=== PATIENT | male | born 1960 | race Caucasian/White ===

== ENCOUNTER 2020-03-18 22:15 | Inpatient (IN) | payer MEDICAID ==
[~2020-03-18] VITALS: Ht 172.7 cm; Wt 110.5 kg
[~2020-03-18 22:15] MED LIST: ARIP10TA8 PO; BENA20TA11 PO; CITA-144 PO; CLON-353 PO; HYDR25TA PO; SIMV-46 PO
[2020-03-18 23:38] LABS: BASOPHILS % (AUTO) 0.8 % (0.0-2.0); HEMATOCRIT 39.9 % (41-53); HEMOGLOBIN 13.1 g/dL (13.5-17.5); LYMPHOCYTES # (AUTO) 1.8 K/uL (1.0-4.8); LYMPHOCYTES % (AUTO) 22.7 % (22.0-44.0); MEAN CORPUSCULAR HEMOGLOBIN 28.2 pg (26.0-34.0); MEAN CORPUSCULAR HGB CONC 32.8 G/dL (31.0-37.0); MEAN CORPUSCULAR VOLUME 86 fL (80-100); MONOCYTES # (AUTO) 0.5 K/uL (0.1-1.0); MONOCYTES % (AUTO) 6.5 % (2.0-9.0); NEUTROPHILS # (AUTO) 5.4 K/uL (1.8-7.7); PLATELET COUNT (AUTO) 264 K/uL (150-450); RED BLOOD CELL COUNT(AUTO) 4.64 MIL/uL (4.50-5.90); RED CELL DISTRIBUTION WIDTH 14.1 % (11.5-14.5)
[2020-03-18 23:53] LABS: ANION GAP 6 mmol/L (8-16); CALCIUM, TOTAL 8.5 mg/dL (8.8-10.5); CARBON DIOXIDE 30 mmol/L (22-29); CHLORIDE 109 mmol/L (98-107); CREATININE 1.15 mg/dL (0.60-1.30); GLOMERULAR FILTR. RATE CALC > 60 mL/min (>60); GLUCOSE,RANDOM 96 mg/dL (70-110); POTASSIUM 4.3 mmol/L (3.5-5.1); SODIUM SERUM 145 mmol/L (136-145); UREA NITROGEN, BLOOD 27 mg/dL (7-18)
[2020-03-19 00:01] LABS: ALANINE AMINOTRANSFERASE 23 U/L (12-78); ALBUMIN 3.1 g/dL (3.4-5.0); ALKALINE PHOSPHATASE 54 U/L (46-116); ASPARTATE AMINOTRANSFERASE 14 U/L (15-37); BILIRUBIN,TOTAL 0.2 mg/dL (0.1-1.0); TOTAL PROTEIN, SERUM 6.2 g/dL (6.4-8.2)
[2020-03-19] MEDS ORDERED: IOVERSOL 350 MG/ML 100 ML VIAL ONE (01:30)
[2020-03-19] MEDS ORDERED: SODIUM CHLORIDE 0.9% 100 ML ONE (01:31)
[2020-03-19] MEDS ORDERED: HALOPERIDOL 5 MG TABLET PO PRN (02:00)
[2020-03-19] MEDS ORDERED: LORazepam 2 MG TABLET PO PRN (02:00)
[2020-03-19] MEDS ORDERED: ZOLPIDEM TARTRATE 10 MG TABLET PO PRN (02:00)
[2020-03-19 02:09] LABS: APPEARANCE,URINE CLEAR (CLEAR); BILIRUBIN,URINE NEGATIVE (NEGATIVE); GLUCOSE, URINE (UA) NEGATIVE (NEGATIVE); KETONES,URINE NEGATIVE (NEGATIVE); LEUKOCYTE ESTERASE ,URINE NEGATIVE (NEGATIVE); NITRATE,URINE NEGATIVE (NEGATIVE); OCCULT BLOOD,URINE NEGATIVE (NEGATIVE); PROTEIN,URINE NEGATIVE (NEGATIVE); UROBILINOGEN,URINE 0.2 mg/dL (<=1.0)
[2020-03-19 02:14] LABS: AMPHET/METH SCREEN,URINE NEGATIVE (NEGATIVE); BARBITURATE SCREEN, URINE NEGATIVE (NEGATIVE); BENZODIAZEPINES SCREEN,URINE NEGATIVE (NEGATIVE); CANNABINOID SCREEN,URINE NEGATIVE (NEGATIVE); COCAINE SCREEN,URINE NEGATIVE (NEGATIVE); METHADONE SCREEN, URINE NEGATIVE (NEGATIVE); OPIATE SCREEN,URINE NEGATIVE (NEGATIVE)
[2020-03-19] MEDS ORDERED: MAG HYDROX/AL HYDROX/SIMETH ES 30 ML SUSPENSION UDCUP PO PRN (09:00)
[2020-03-19] MEDS ORDERED: MAGNESIUM HYDROXIDE SUSPENSION 30 ML UDCUP PO PRN (09:00)
[2020-03-19] MEDS ORDERED: ACETAMINOPHEN 325 MG TABLET PO PRN (09:00)
[2020-03-19] MEDS ORDERED: CloNIDine HCL 0.1 MG TABLET PO PRN (09:00)
[2020-03-19] MEDS ORDERED: PETROLATUM,WHITE 28 GM JELLY TP PRN (09:00)
[2020-03-19] MEDS ORDERED: ONDANSETRON HCL 4 MG TABLET PO PRN (09:00)
[2020-03-19] MEDS ORDERED: IBUPROFEN 400 MG TABLET PO PRN (09:00)
[2020-03-19] MEDS ORDERED: ALBUTEROL SULFATE HFA 90 MCG/PUFF 8 GM INHALER IH PRN (09:00)
[2020-03-19] MEDS ORDERED: NICOTINE 14 MG/24 HOUR PATCH TD PRN (09:00)
[2020-03-19] MEDS ORDERED: GuaiFENesin/D-METHORPHAN [SUGAR-FREE] 200-20MG/10 ML SYRUP UDCUP PO PRN (09:00)
[2020-03-19] MEDS ORDERED: DOCUSATE SODIUM 100 MG CAPSULE PO PRN (09:00)
[2020-03-19 13:00] VITALS: BP 154/77
[2020-03-19] MEDS ORDERED: PNEUMOCOCCAL VACCINE POLYVALENT 0.5 ML VIAL [PPSV23] IM ONE (14:00)
[2020-03-19] MEDS: HYDROCHLOROTHIAZIDE 25 MG TABLET PO SCH (14:26)
[2020-03-19 17:00] VITALS: BP 145/74
[2020-03-20 07:11] LABS: CHOL/HDL RATIO 4.7 (4.2-7.3)
[2020-03-20] MEDS: HYDROCHLOROTHIAZIDE 25 MG TABLET PO SCH (09:09)
[2020-03-20 09:37] VITALS: BP 151/98
[2020-03-20] MEDS: CITALOPRAM HYDROBROMIDE 10 MG TABLET PO SCH (13:19)
[2020-03-20] MEDS: ARIPiprazole 10 MG TABLET PO SCH (16:45)
[2020-03-20] MEDS: CloNIDine HCL 0.1 MG TABLET PO SCH (16:45)
[2020-03-20 17:27] VITALS: BP 145/81
[2020-03-20] MEDS: SIMVASTATIN 40 MG TABLET PO SCH (20:33)
[2020-03-21 08:30] VITALS: BP 154/66
[2020-03-21] MEDS ORDERED: BENAZEPRIL HCL 20 MG TABLET PO SCH (09:00)
[2020-03-21] MEDS: CloNIDine HCL 0.1 MG TABLET PO SCH ×2 (09:01→16:47)
[2020-03-21] MEDS: ARIPiprazole 10 MG TABLET PO SCH ×2 (09:01→16:47)
[2020-03-21] MEDS: HYDROCHLOROTHIAZIDE 25 MG TABLET PO SCH (09:01)
[2020-03-21] MEDS: CITALOPRAM HYDROBROMIDE 10 MG TABLET PO SCH (09:01)
[2020-03-21 19:35] VITALS: BP 117/62
[2020-03-21] MEDS: SIMVASTATIN 40 MG TABLET PO SCH (20:10)
[2020-03-22 05:08] VITALS: BP 125/62
[2020-03-22 08:30] VITALS: BP 137/89
[2020-03-22] MEDS: HYDROCHLOROTHIAZIDE 25 MG TABLET PO SCH (09:37)
[2020-03-22] MEDS: CloNIDine HCL 0.1 MG TABLET PO SCH ×2 (09:37→17:16)
[2020-03-22] MEDS: CITALOPRAM HYDROBROMIDE 10 MG TABLET PO SCH (09:37)
[2020-03-22] MEDS: ARIPiprazole 10 MG TABLET PO SCH ×2 (09:37→17:16)
[2020-03-22] MEDS: BENAZEPRIL HCL 10 MG TABLET PO SCH (09:38)
[2020-03-22 16:00] VITALS: BP 126/71
[2020-03-22] MEDS: SIMVASTATIN 40 MG TABLET PO SCH (20:35)
[2020-03-23 08:30] VITALS: BP 156/91
[2020-03-23] MEDS: CITALOPRAM HYDROBROMIDE 10 MG TABLET PO SCH (09:35)
[2020-03-23] MEDS: BENAZEPRIL HCL 10 MG TABLET PO SCH (09:35)
[2020-03-23] MEDS: CloNIDine HCL 0.1 MG TABLET PO SCH ×2 (09:36→16:57)
[2020-03-23] MEDS: HYDROCHLOROTHIAZIDE 25 MG TABLET PO SCH (09:36)
[2020-03-23] MEDS: ARIPiprazole 10 MG TABLET PO SCH ×2 (09:36→16:57)
[2020-03-23] MEDS: SIMVASTATIN 40 MG TABLET PO SCH (21:19)
[2020-03-23 21:53] VITALS: BP 102/67
[2020-03-24] MEDS: CloNIDine HCL 0.1 MG TABLET PO SCH ×2 (09:13→16:30)
[2020-03-24] MEDS: HYDROCHLOROTHIAZIDE 25 MG TABLET PO SCH (09:13)
[2020-03-24] MEDS: ARIPiprazole 10 MG TABLET PO SCH ×2 (09:13→16:30)
[2020-03-24] MEDS: CITALOPRAM HYDROBROMIDE 10 MG TABLET PO SCH (09:14)
[2020-03-24] MEDS: BENAZEPRIL HCL 10 MG TABLET PO SCH (09:14)
[2020-03-24 12:36] VITALS: BP 110/55
[2020-03-24 19:19] VITALS: BP 117/68
[2020-03-24] MEDS: SIMVASTATIN 40 MG TABLET PO SCH (21:05)
[2020-03-24] MEDS: LOPERAMIDE HCL 2 MG CAPSULE PO PRN (22:12)
[2020-03-25 05:03] VITALS: BP 129/77
[2020-03-25 08:46] VITALS: BP 146/71
[2020-03-25] MEDS: ARIPiprazole 10 MG TABLET PO SCH ×2 (08:53→16:23)
[2020-03-25] MEDS: CloNIDine HCL 0.1 MG TABLET PO SCH ×2 (08:53→16:23)
[2020-03-25] MEDS: HYDROCHLOROTHIAZIDE 25 MG TABLET PO SCH (08:53)
[2020-03-25] MEDS: BENAZEPRIL HCL 10 MG TABLET PO SCH (08:54)
[2020-03-25] MEDS: CITALOPRAM HYDROBROMIDE 10 MG TABLET PO SCH (08:54)
[2020-03-25 20:08] VITALS: BP 123/70
[2020-03-25] MEDS: SIMVASTATIN 40 MG TABLET PO SCH (20:14)
[2020-03-26 05:04] VITALS: BP 133/71
[2020-03-26] MEDS: HYDROCHLOROTHIAZIDE 25 MG TABLET PO SCH (09:09)
[2020-03-26] MEDS: ARIPiprazole 10 MG TABLET PO SCH ×2 (09:09→17:11)
[2020-03-26] MEDS: BENAZEPRIL HCL 10 MG TABLET PO SCH (09:09)
[2020-03-26] MEDS: CITALOPRAM HYDROBROMIDE 10 MG TABLET PO SCH (09:09)
[2020-03-26] MEDS: CloNIDine HCL 0.1 MG TABLET PO SCH ×2 (09:09→17:11)
[2020-03-26 10:14] VITALS: BP 126/70
[2020-03-26 18:32] VITALS: BP 105/69
[2020-03-26] MEDS: SIMVASTATIN 40 MG TABLET PO SCH (20:44)
[2020-03-27] MEDS: HYDROCHLOROTHIAZIDE 25 MG TABLET PO SCH (09:25)
[2020-03-27] MEDS: CloNIDine HCL 0.1 MG TABLET PO SCH ×2 (09:25→16:04)
[2020-03-27] MEDS: ARIPiprazole 10 MG TABLET PO SCH ×2 (09:25→16:04)
[2020-03-27] MEDS: BENAZEPRIL HCL 10 MG TABLET PO SCH (09:26)
[2020-03-27] MEDS: CITALOPRAM HYDROBROMIDE 10 MG TABLET PO SCH (09:26)
[2020-03-27 13:05] VITALS: BP 145/80
[2020-03-27 18:40] VITALS: BP 152/53
[2020-03-27] MEDS: SIMVASTATIN 40 MG TABLET PO SCH (20:47)
[2020-03-27 23:43] VITALS: BP 122/70
[2020-03-28 09:06] VITALS: BP 157/86
[2020-03-28] MEDS: CITALOPRAM HYDROBROMIDE 10 MG TABLET PO SCH (09:15)
[2020-03-28] MEDS: CloNIDine HCL 0.1 MG TABLET PO SCH ×2 (09:15→17:00)
[2020-03-28] MEDS: HYDROCHLOROTHIAZIDE 25 MG TABLET PO SCH (09:15)
[2020-03-28] MEDS: ARIPiprazole 10 MG TABLET PO SCH ×2 (09:15→17:26)
[2020-03-28] MEDS: BENAZEPRIL HCL 10 MG TABLET PO SCH (09:16)
[2020-03-28 16:45] VITALS: BP 110/69
[2020-03-28 16:59] VITALS: BP 113/71
[2020-03-28] MEDS: SIMVASTATIN 40 MG TABLET PO SCH (20:26)
[2020-03-29] MEDS: BENAZEPRIL HCL 10 MG TABLET PO SCH (09:16)
[2020-03-29] MEDS: HYDROCHLOROTHIAZIDE 25 MG TABLET PO SCH (09:16)
[2020-03-29] MEDS: CITALOPRAM HYDROBROMIDE 10 MG TABLET PO SCH (09:16)
[2020-03-29] MEDS: ARIPiprazole 10 MG TABLET PO SCH ×2 (09:16→16:18)
[2020-03-29] MEDS: CloNIDine HCL 0.1 MG TABLET PO SCH ×2 (09:16→16:18)
[2020-03-29 10:39] VITALS: BP 129/80
[2020-03-29 16:32] VITALS: BP 99/61
[2020-03-29] MEDS: LOPERAMIDE HCL 2 MG CAPSULE PO PRN (16:32)
[2020-03-29] MEDS: SIMVASTATIN 40 MG TABLET PO SCH (20:36)
[2020-03-30 00:58] VITALS: BP 139/57
[2020-03-30 09:51] VITALS: BP 147/78
[2020-03-30] MEDS: HYDROCHLOROTHIAZIDE 25 MG TABLET PO SCH (09:55)
[2020-03-30] MEDS: BENAZEPRIL HCL 10 MG TABLET PO SCH (09:55)
[2020-03-30] MEDS: CITALOPRAM HYDROBROMIDE 10 MG TABLET PO SCH (09:55)
[2020-03-30] MEDS: ARIPiprazole 10 MG TABLET PO SCH ×2 (09:55→17:37)
[2020-03-30] MEDS: CloNIDine HCL 0.1 MG TABLET PO SCH ×2 (09:56→17:37)
[2020-03-30 17:21] LABS: BASOPHILS % (AUTO) 0.6 % (0.0-2.0); EOSINOPHILS % (AUTO) 1.4 % (1.0-6.0); HEMATOCRIT 40.7 % (41-53); HEMOGLOBIN 13.3 g/dL (13.5-17.5); LYMPHOCYTES # (AUTO) 1.7 K/uL (1.0-4.8); LYMPHOCYTES % (AUTO) 24.3 % (22.0-44.0); MEAN CORPUSCULAR HEMOGLOBIN 28.2 pg (26.0-34.0); MEAN CORPUSCULAR HGB CONC 32.7 G/dL (31.0-37.0); MEAN CORPUSCULAR VOLUME 86 fL (80-100); MONOCYTES # (AUTO) 0.4 K/uL (0.1-1.0); MONOCYTES % (AUTO) 6.3 % (2.0-9.0); NEUTROPHILS # (AUTO) 4.7 K/uL (1.8-7.7); NEUTROPHILS % (AUTO) 67.4 % (40.0-70.0); PLATELET COUNT (AUTO) 255 K/uL (150-450); RED BLOOD CELL COUNT(AUTO) 4.72 MIL/uL (4.50-5.90); RED CELL DISTRIBUTION WIDTH 13.8 % (11.5-14.5)
[2020-03-30 17:39] LABS: ANION GAP 5 mmol/L (8-16); CALCIUM, TOTAL 8.7 mg/dL (8.8-10.5); CARBON DIOXIDE 32 mmol/L (22-29); CHLORIDE 103 mmol/L (98-107); CREATININE 0.99 mg/dL (0.60-1.30); GLOMERULAR FILTR. RATE CALC > 60 mL/min (>60); GLUCOSE,RANDOM 101 mg/dL (70-110); POTASSIUM 4.1 mmol/L (3.5-5.1); SODIUM SERUM 140 mmol/L (136-145); UREA NITROGEN, BLOOD 31 mg/dL (7-18)
[2020-03-30 17:42] VITALS: BP 105/65
[2020-03-30] MEDS: SIMVASTATIN 40 MG TABLET PO SCH (20:03)
[2020-03-31 09:07] VITALS: BP 141/76
[2020-03-31] MEDS: CloNIDine HCL 0.1 MG TABLET PO SCH ×2 (09:51→17:34)
[2020-03-31] MEDS: HYDROCHLOROTHIAZIDE 25 MG TABLET PO SCH (09:51)
[2020-03-31] MEDS: BENAZEPRIL HCL 10 MG TABLET PO SCH (09:52)
[2020-03-31] MEDS: ARIPiprazole 10 MG TABLET PO SCH ×2 (09:52→17:34)
[2020-03-31] MEDS: CITALOPRAM HYDROBROMIDE 10 MG TABLET PO SCH (09:53)
[2020-03-31 18:55] VITALS: BP 136/69
[2020-03-31] MEDS: SIMVASTATIN 40 MG TABLET PO SCH (20:40)
[2020-04-01] MEDS: CloNIDine HCL 0.1 MG TABLET PO SCH ×2 (09:15→17:00)
[2020-04-01] MEDS: ARIPiprazole 10 MG TABLET PO SCH ×2 (09:16→17:27)
[2020-04-01] MEDS: BENAZEPRIL HCL 10 MG TABLET PO SCH (09:16)
[2020-04-01] MEDS: HYDROCHLOROTHIAZIDE 25 MG TABLET PO SCH (09:16)
[2020-04-01] MEDS: CITALOPRAM HYDROBROMIDE 10 MG TABLET PO SCH (09:16)
[2020-04-01 11:06] VITALS: BP 118/73
[2020-04-01 16:00] VITALS: BP 131/74
[2020-04-01] MEDS: SIMVASTATIN 40 MG TABLET PO SCH (20:37)
[2020-04-02 06:20] VITALS: BP 147/90
[2020-04-02 08:00] VITALS: BP 149/91
[2020-04-02] MEDS: HYDROCHLOROTHIAZIDE 25 MG TABLET PO SCH (09:24)
[2020-04-02] MEDS: CloNIDine HCL 0.1 MG TABLET PO SCH ×2 (09:24→17:00)
[2020-04-02] MEDS: ARIPiprazole 10 MG TABLET PO SCH ×2 (09:25→17:17)
[2020-04-02] MEDS: CITALOPRAM HYDROBROMIDE 10 MG TABLET PO SCH (09:25)
[2020-04-02] MEDS: BENAZEPRIL HCL 10 MG TABLET PO SCH (09:26)
[2020-04-02 15:10] VITALS: BP 131/63
[2020-04-02 16:35] LABS: GLUCOMETER DEV NAME(LOC) PVLAB.13
[2020-04-02 17:00] VITALS: BP 128/65
[2020-04-02] MEDS: SIMVASTATIN 40 MG TABLET PO SCH (20:44)
[2020-04-03] MEDS: CloNIDine HCL 0.1 MG TABLET PO SCH (08:59)
[2020-04-03] MEDS: BENAZEPRIL HCL 10 MG TABLET PO SCH (08:59)
[2020-04-03] MEDS: ARIPiprazole 10 MG TABLET PO SCH (08:59)
[2020-04-03] MEDS: HYDROCHLOROTHIAZIDE 25 MG TABLET PO SCH (09:00)
[2020-04-03] MEDS: CITALOPRAM HYDROBROMIDE 10 MG TABLET PO SCH (09:00)
[2020-04-03 09:23] VITALS: BP 156/85
[2020-04-03] MEDS ORDERED: CITA10TA99 PO (10:13)
[2020-04-03] MEDS ORDERED: BENA10TA77 PO (10:19)
== END 2020-04-03 16:15 | disposition home or self-care (01) | DRG 881 ==
LOC: EMS 22:17 → 3EX 03-19 12:35 → 3EI 03-19 17:04
PROVIDERS: ADMIT Psychiatry & Neurology Psychiatry; ATTEND Psychiatry & Neurology Psychiatry
DX: F32.9 Major depressive disorder, single episode, unspecified (principal); R45.851 Suicidal ideations; I10 Essential (primary) hypertension; E78.5 Hyperlipidemia, unspecified; E66.01 Morbid (severe) obesity due to excess calories; E78.00 Pure hypercholesterolemia, unspecified; Z86.73 Personal history of transient ischemic attack (TIA), and cerebral infarction without residual deficits; Z59.0 Homelessness; R91.1 Solitary pulmonary nodule; Z79.899 Other long term (current) drug therapy; E11.9 Type 2 diabetes mellitus without complications; M19.90 Unspecified osteoarthritis, unspecified site; F41.9 Anxiety disorder, unspecified; D64.9 Anemia, unspecified
CPT/HCPCS: 74177; G0480; J7050

== ENCOUNTER 2021-05-15 19:13 | Inpatient (IN) | payer MEDICAID, OTHER ==
[~2021-05-15] VITALS: Ht 170.2 cm; Wt 109.8 kg
[~2021-05-15 19:13] MED LIST changes: +ARIP10TA38 PO; -ARIP10TA8 PO; +BENA10TA77 PO; -BENA20TA11 PO; -CITA-144 PO; +CITA10TA99 PO
[2021-05-15] MEDS ORDERED: HALOPERIDOL 5 MG TABLET PO PRN (23:00)
[2021-05-15 23:07] LABS: BASOPHILS % (AUTO) 0.7 % (0.0-2.0); EOSINOPHILS % (AUTO) 1.3 % (1.0-6.0); HEMATOCRIT 42.9 % (41-53); HEMOGLOBIN 13.9 g/dL (13.5-17.5); LYMPHOCYTES # (AUTO) 1.5 K/uL (1.0-4.8); LYMPHOCYTES % (AUTO) 20.9 % (22.0-44.0); MEAN CORPUSCULAR HEMOGLOBIN 28.2 pg (26.0-34.0); MEAN CORPUSCULAR HGB CONC 32.5 G/dL (31.0-37.0); MEAN CORPUSCULAR VOLUME 87 fL (80-100); MONOCYTES # (AUTO) 0.4 K/uL (0.1-1.0); NEUTROPHILS # (AUTO) 5.1 K/uL (1.8-7.7); NEUTROPHILS % (AUTO) 71.1 % (40.0-70.0); PLATELET COUNT (AUTO) 218 K/uL (150-450); RED BLOOD CELL COUNT(AUTO) 4.95 MIL/uL (4.50-5.90); RED CELL DISTRIBUTION WIDTH 14.3 % (11.5-14.5)
[2021-05-15 23:16] LABS: ANION GAP 4 mmol/L (8-16); CARBON DIOXIDE 30 mmol/L (22-29); CHLORIDE 105 mmol/L (98-107); CREATININE 1.03 mg/dL (0.60-1.30); GLOMERULAR FILTR. RATE CALC > 60 mL/min (>60); GLUCOSE,RANDOM 91 mg/dL (70-110); POTASSIUM 4.3 mmol/L (3.5-5.1); SODIUM SERUM 139 mmol/L (136-145); UREA NITROGEN, BLOOD 29 mg/dL (7-18)
[2021-05-15 23:22] LABS: ALANINE AMINOTRANSFERASE 88 U/L (12-78); ALBUMIN 3.3 g/dL (3.4-5.0); ALKALINE PHOSPHATASE 64 U/L (46-116); ASPARTATE AMINOTRANSFERASE 42 U/L (15-37); BILIRUBIN,TOTAL 0.6 mg/dL (0.1-1.0)
[2021-05-15 23:54] LABS: COVID AG,FIA SOURCE NASOPHARYNGEAL
[2021-05-16] MEDS: LORazepam 2 MG TABLET PO PRN (01:11)
[2021-05-16] MEDS ORDERED: PNEUMOCOCCAL VACCINE POLYVALENT 0.5 ML VIAL [PPSV23] IM. ONE (04:30)
[2021-05-16 06:16] VITALS: BP 183/124
[2021-05-16] MEDS ORDERED: AmLODIPine BESYLATE 10 MG TABLET PO ONE (06:45)
[2021-05-16 07:45] VITALS: BP 177/119
[2021-05-16] MEDS ORDERED: PETROLATUM,WHITE 28 GM JELLY TP PRN (08:45)
[2021-05-16] MEDS ORDERED: LOPERAMIDE HCL 2 MG CAPSULE PO PRN (08:45)
[2021-05-16] MEDS ORDERED: CloNIDine HCL 0.1 MG TABLET PO PRN (08:45)
[2021-05-16] MEDS ORDERED: MAG HYDROX/AL HYDROX/SIMETH ES 30 ML SUSPENSION UDCUP PO PRN (08:45)
[2021-05-16] MEDS ORDERED: NICOTINE 14 MG/24 HOUR PATCH TD PRN (08:45)
[2021-05-16] MEDS ORDERED: ALBUTEROL SULFATE HFA 90 MCG/PUFF 8 GM INHALER IH PRN (08:45)
[2021-05-16] MEDS ORDERED: GuaiFENesin/D-METHORPHAN [SUGAR-FREE] 200-20MG/10 ML SYRUP UDCUP PO PRN (08:45)
[2021-05-16] MEDS ORDERED: ONDANSETRON HCL 4 MG TABLET PO PRN (08:45)
[2021-05-16] MEDS ORDERED: DOCUSATE SODIUM 100 MG CAPSULE PO PRN (08:45)
[2021-05-16] MEDS ORDERED: MAGNESIUM HYDROXIDE SUSPENSION 30 ML UDCUP PO PRN (08:45)
[2021-05-16] MEDS ORDERED: CloNIDine HCL 0.2 MG TABLET PO SCH (09:00)
[2021-05-16] MEDS: CloNIDine HCL 0.1 MG TABLET PO SCH ×2 (09:22→16:43)
[2021-05-16 09:25] VITALS: BP 196/130
[2021-05-16] MEDS: HYDROCHLOROTHIAZIDE 25 MG TABLET PO SCH (09:29)
[2021-05-16 10:05] VITALS: BP 173/96
[2021-05-16 10:40] VITALS: BP 133/56
[2021-05-16] MEDS ORDERED: CLON0.1T2 PO (15:01)
[2021-05-16] MEDS: ARIPiprazole 10 MG TABLET PO SCH (16:43)
[2021-05-16] MEDS: CITALOPRAM HYDROBROMIDE 10 MG TABLET PO SCH (16:43)
[2021-05-16 16:53] VITALS: BP 132/82
[2021-05-16] MEDS: SIMVASTATIN 40 MG TABLET PO SCH (20:08)
[2021-05-17 07:08] LABS: CHOL/HDL RATIO 4.6 (4.2-7.3)
[2021-05-17] MEDS: ARIPiprazole 10 MG TABLET PO SCH (08:03)
[2021-05-17] MEDS: CloNIDine HCL 0.1 MG TABLET PO SCH ×2 (08:03→16:10)
[2021-05-17] MEDS: CITALOPRAM HYDROBROMIDE 10 MG TABLET PO SCH (08:03)
[2021-05-17] MEDS: HYDROCHLOROTHIAZIDE 25 MG TABLET PO SCH (08:03)
[2021-05-17] MEDS: AmLODIPine BESYLATE 10 MG TABLET PO SCH (08:03)
[2021-05-17 09:03] VITALS: BP 160/92
[2021-05-17 16:03] VITALS: BP 151/97
[2021-05-17 18:32] LABS: APPEARANCE,URINE CLEAR (CLEAR); BILIRUBIN,URINE NEGATIVE (NEGATIVE); GLUCOSE, URINE (UA) NEGATIVE (NEGATIVE); KETONES,URINE NEGATIVE (NEGATIVE); LEUKOCYTE ESTERASE ,URINE NEGATIVE (NEGATIVE); NITRATE,URINE NEGATIVE (NEGATIVE); OCCULT BLOOD,URINE NEGATIVE (NEGATIVE); PROTEIN,URINE NEGATIVE (NEGATIVE)
[2021-05-17 18:37] LABS: AMPHET/METH SCREEN,URINE NEGATIVE (NEGATIVE); BARBITURATE SCREEN, URINE NEGATIVE (NEGATIVE); BENZODIAZEPINES SCREEN,URINE NEGATIVE (NEGATIVE); CANNABINOID SCREEN,URINE NEGATIVE (NEGATIVE); COCAINE SCREEN,URINE NEGATIVE (NEGATIVE); METHADONE SCREEN, URINE NEGATIVE (NEGATIVE); OPIATE SCREEN,URINE NEGATIVE (NEGATIVE); PHENCYCLIDINE SCREEN,URINE NEGATIVE (NEGATIVE)
[2021-05-17] MEDS: ACETAMINOPHEN 325 MG TABLET PO PRN (20:28)
[2021-05-17] MEDS: SIMVASTATIN 40 MG TABLET PO SCH (20:28)
[2021-05-17 20:29] VITALS: BP 148/94
[2021-05-17 21:28] VITALS: BP 144/89
[2021-05-18 08:32] VITALS: BP 144/75
[2021-05-18] MEDS: ARIPiprazole 10 MG TABLET PO SCH (09:00)
[2021-05-18] MEDS: CITALOPRAM HYDROBROMIDE 10 MG TABLET PO SCH (09:00)
[2021-05-18] MEDS: CloNIDine HCL 0.1 MG TABLET PO SCH ×2 (09:00→16:22)
[2021-05-18] MEDS: AmLODIPine BESYLATE 10 MG TABLET PO SCH (09:00)
[2021-05-18] MEDS: HYDROCHLOROTHIAZIDE 25 MG TABLET PO SCH (09:00)
[2021-05-18] MEDS: ACETAMINOPHEN 325 MG TABLET PO PRN (09:20)
[2021-05-18 16:34] VITALS: BP 159/86
[2021-05-18] MEDS: SIMVASTATIN 40 MG TABLET PO SCH (20:10)
[2021-05-19] MEDS: CITALOPRAM HYDROBROMIDE 20 MG TABLET PO SCH (08:14)
[2021-05-19] MEDS: ARIPiprazole 10 MG TABLET PO SCH (08:15)
[2021-05-19] MEDS: AmLODIPine BESYLATE 10 MG TABLET PO SCH (08:15)
[2021-05-19] MEDS: CloNIDine HCL 0.1 MG TABLET PO SCH ×2 (08:15→17:42)
[2021-05-19] MEDS: HYDROCHLOROTHIAZIDE 25 MG TABLET PO SCH (08:17)
[2021-05-19] MEDS: IBUPROFEN 400 MG TABLET PO PRN (08:18)
[2021-05-19 08:19] VITALS: BP 140/82
[2021-05-19 09:18] VITALS: BP 101/64
[2021-05-19 17:43] VITALS: BP 128/73
[2021-05-19] MEDS: SIMVASTATIN 40 MG TABLET PO SCH (20:00)
[2021-05-20] MEDS: CITALOPRAM HYDROBROMIDE 20 MG TABLET PO SCH (08:41)
[2021-05-20] MEDS: AmLODIPine BESYLATE 10 MG TABLET PO SCH (08:41)
[2021-05-20] MEDS: CloNIDine HCL 0.1 MG TABLET PO SCH ×2 (08:41→16:00)
[2021-05-20] MEDS: HYDROCHLOROTHIAZIDE 25 MG TABLET PO SCH (08:41)
[2021-05-20] MEDS: ARIPiprazole 10 MG TABLET PO SCH (08:41)
[2021-05-20 08:44] VITALS: BP 121/73
[2021-05-20 16:00] VITALS: BP 120/71
[2021-05-20] MEDS: SIMVASTATIN 40 MG TABLET PO SCH (20:20)
[2021-05-21] MEDS: HYDROCHLOROTHIAZIDE 25 MG TABLET PO SCH (08:22)
[2021-05-21] MEDS: AmLODIPine BESYLATE 10 MG TABLET PO SCH (08:22)
[2021-05-21] MEDS: CITALOPRAM HYDROBROMIDE 20 MG TABLET PO SCH (08:23)
[2021-05-21] MEDS: CloNIDine HCL 0.1 MG TABLET PO SCH ×2 (08:23→16:14)
[2021-05-21] MEDS: ARIPiprazole 10 MG TABLET PO SCH (08:23)
[2021-05-21 08:30] VITALS: BP 119/59
[2021-05-21 16:21] VITALS: BP 129/75
[2021-05-21 16:57] LABS: COVID AG,FIA SOURCE NASOPHARYNGEAL
[2021-05-21] MEDS: SIMVASTATIN 40 MG TABLET PO SCH (20:22)
[2021-05-22 01:20] VITALS: BP 132/66
[2021-05-22] MEDS: LORazepam 2 MG TABLET PO PRN (01:20)
[2021-05-22 08:40] VITALS: BP 146/78
[2021-05-22] MEDS: HYDROCHLOROTHIAZIDE 25 MG TABLET PO SCH (09:39)
[2021-05-22] MEDS: AmLODIPine BESYLATE 10 MG TABLET PO SCH (09:39)
[2021-05-22] MEDS: CloNIDine HCL 0.1 MG TABLET PO SCH ×2 (09:39→16:17)
[2021-05-22] MEDS: ARIPiprazole 10 MG TABLET PO SCH (09:39)
[2021-05-22] MEDS: CITALOPRAM HYDROBROMIDE 20 MG TABLET PO SCH (09:39)
[2021-05-22 16:19] VITALS: BP 126/60
[2021-05-22] MEDS: SIMVASTATIN 40 MG TABLET PO SCH (20:08)
[2021-05-23 08:58] VITALS: BP 130/72
[2021-05-23] MEDS: CloNIDine HCL 0.1 MG TABLET PO SCH ×2 (09:54→16:04)
[2021-05-23] MEDS: HYDROCHLOROTHIAZIDE 25 MG TABLET PO SCH (09:55)
[2021-05-23] MEDS: ARIPiprazole 10 MG TABLET PO SCH (09:55)
[2021-05-23] MEDS: AmLODIPine BESYLATE 10 MG TABLET PO SCH (09:55)
[2021-05-23] MEDS: CITALOPRAM HYDROBROMIDE 20 MG TABLET PO SCH (09:56)
[2021-05-23 16:00] VITALS: BP 136/70
[2021-05-23] MEDS: SIMVASTATIN 40 MG TABLET PO SCH (20:03)
[2021-05-24 08:33] VITALS: BP 141/60
[2021-05-24] MEDS: ARIPiprazole 10 MG TABLET PO SCH (08:57)
[2021-05-24] MEDS: CITALOPRAM HYDROBROMIDE 20 MG TABLET PO SCH (08:58)
[2021-05-24] MEDS: AmLODIPine BESYLATE 10 MG TABLET PO SCH (08:58)
[2021-05-24] MEDS: HYDROCHLOROTHIAZIDE 25 MG TABLET PO SCH (08:58)
[2021-05-24] MEDS: CloNIDine HCL 0.1 MG TABLET PO SCH ×2 (08:59→16:34)
[2021-05-24 16:04] VITALS: BP 150/73
[2021-05-24] MEDS: SIMVASTATIN 40 MG TABLET PO SCH (20:23)
[2021-05-25 05:40] VITALS: BP 133/72
[2021-05-25] MEDS: ACETAMINOPHEN 325 MG TABLET PO PRN (05:43)
[2021-05-25] MEDS: ARIPiprazole 10 MG TABLET PO SCH (08:11)
[2021-05-25] MEDS: CITALOPRAM HYDROBROMIDE 20 MG TABLET PO SCH (08:11)
[2021-05-25] MEDS: CloNIDine HCL 0.1 MG TABLET PO SCH ×2 (08:11→16:12)
[2021-05-25] MEDS: AmLODIPine BESYLATE 10 MG TABLET PO SCH (08:11)
[2021-05-25] MEDS: HYDROCHLOROTHIAZIDE 25 MG TABLET PO SCH (08:11)
[2021-05-25 09:22] VITALS: BP 103/65
[2021-05-25 16:00] VITALS: BP 118/71
[2021-05-25] MEDS: SIMVASTATIN 40 MG TABLET PO SCH (20:20)
[2021-05-26 08:24] VITALS: BP 105/61
[2021-05-26] MEDS: HYDROCHLOROTHIAZIDE 25 MG TABLET PO SCH (09:00)
[2021-05-26] MEDS: CITALOPRAM HYDROBROMIDE 20 MG TABLET PO SCH (09:00)
[2021-05-26] MEDS: AmLODIPine BESYLATE 10 MG TABLET PO SCH (09:00)
[2021-05-26] MEDS: ARIPiprazole 10 MG TABLET PO SCH (09:01)
[2021-05-26] MEDS: CloNIDine HCL 0.1 MG TABLET PO SCH ×2 (09:01→17:36)
[2021-05-26 16:53] VITALS: BP 133/73
[2021-05-26] MEDS: SIMVASTATIN 40 MG TABLET PO SCH (20:54)
[2021-05-27] MEDS: CloNIDine HCL 0.1 MG TABLET PO SCH ×2 (08:55→16:05)
[2021-05-27] MEDS: AmLODIPine BESYLATE 10 MG TABLET PO SCH (08:55)
[2021-05-27] MEDS: HYDROCHLOROTHIAZIDE 25 MG TABLET PO SCH (09:07)
[2021-05-27] MEDS: ARIPiprazole 10 MG TABLET PO SCH (09:08)
[2021-05-27] MEDS: CITALOPRAM HYDROBROMIDE 20 MG TABLET PO SCH (09:09)
[2021-05-27 09:25] VITALS: BP 125/65
[2021-05-27 16:19] VITALS: BP 140/73
[2021-05-27] MEDS: SIMVASTATIN 40 MG TABLET PO SCH (20:11)
[2021-05-28 08:41] VITALS: BP 105/71
[2021-05-28] MEDS: ARIPiprazole 10 MG TABLET PO SCH (08:43)
[2021-05-28] MEDS: CITALOPRAM HYDROBROMIDE 20 MG TABLET PO SCH (08:44)
[2021-05-28 10:35] VITALS: BP 146/85
[2021-05-28] MEDS: AmLODIPine BESYLATE 10 MG TABLET PO SCH (10:37)
[2021-05-28] MEDS: HYDROCHLOROTHIAZIDE 25 MG TABLET PO SCH (10:37)
[2021-05-28] MEDS: CloNIDine HCL 0.1 MG TABLET PO SCH ×2 (10:37→16:03)
[2021-05-28] MEDS: IBUPROFEN 400 MG TABLET PO PRN (10:37)
[2021-05-28 11:31] LABS: COVID AG,FIA SOURCE NASOPHARYNGEAL
[2021-05-28 16:00] VITALS: BP 137/80
[2021-05-28] MEDS: SIMVASTATIN 40 MG TABLET PO SCH (20:05)
[2021-05-29] MEDS: ARIPiprazole 10 MG TABLET PO SCH (08:39)
[2021-05-29] MEDS: CloNIDine HCL 0.1 MG TABLET PO SCH ×2 (08:39→16:25)
[2021-05-29 08:40] VITALS: BP 133/69
[2021-05-29] MEDS: AmLODIPine BESYLATE 10 MG TABLET PO SCH (08:40)
[2021-05-29] MEDS: HYDROCHLOROTHIAZIDE 25 MG TABLET PO SCH (08:40)
[2021-05-29] MEDS: CITALOPRAM HYDROBROMIDE 20 MG TABLET PO SCH (08:40)
[2021-05-29] MEDS: IBUPROFEN 400 MG TABLET PO PRN (08:42)
[2021-05-29 16:35] VITALS: BP 152/80
[2021-05-29] MEDS: SIMVASTATIN 40 MG TABLET PO SCH (20:15)
[2021-05-30 08:00] VITALS: BP 146/74
[2021-05-30] MEDS: HYDROCHLOROTHIAZIDE 25 MG TABLET PO SCH (09:07)
[2021-05-30] MEDS: CITALOPRAM HYDROBROMIDE 20 MG TABLET PO SCH (09:08)
[2021-05-30] MEDS: ARIPiprazole 10 MG TABLET PO SCH (09:08)
[2021-05-30] MEDS: AmLODIPine BESYLATE 10 MG TABLET PO SCH (09:08)
[2021-05-30] MEDS: CloNIDine HCL 0.1 MG TABLET PO SCH ×2 (09:08→16:29)
[2021-05-30 16:21] VITALS: BP 124/61
[2021-05-30] MEDS: SIMVASTATIN 40 MG TABLET PO SCH (20:48)
[2021-05-31 08:16] VITALS: BP 136/73
[2021-05-31 09:00] VITALS: BP 136/73
[2021-05-31] MEDS: HYDROCHLOROTHIAZIDE 25 MG TABLET PO SCH (09:11)
[2021-05-31] MEDS: AmLODIPine BESYLATE 10 MG TABLET PO SCH (09:11)
[2021-05-31] MEDS: CITALOPRAM HYDROBROMIDE 20 MG TABLET PO SCH (09:12)
[2021-05-31] MEDS: ARIPiprazole 10 MG TABLET PO SCH (09:12)
[2021-05-31] MEDS: CloNIDine HCL 0.1 MG TABLET PO SCH ×2 (09:12→16:23)
[2021-05-31 16:13] VITALS: BP 114/64
[2021-05-31] MEDS: SIMVASTATIN 40 MG TABLET PO SCH (20:57)
[2021-06-01 05:14] VITALS: BP 138/70
[2021-06-01] MEDS: LORazepam 2 MG TABLET PO PRN (05:14)
[2021-06-01 08:49] VITALS: BP 132/76
[2021-06-01] MEDS: ARIPiprazole 10 MG TABLET PO SCH (08:53)
[2021-06-01] MEDS: HYDROCHLOROTHIAZIDE 25 MG TABLET PO SCH (08:53)
[2021-06-01] MEDS: CloNIDine HCL 0.1 MG TABLET PO SCH ×2 (08:53→16:23)
[2021-06-01] MEDS: AmLODIPine BESYLATE 10 MG TABLET PO SCH (08:54)
[2021-06-01] MEDS: CITALOPRAM HYDROBROMIDE 20 MG TABLET PO SCH (08:54)
[2021-06-01 16:00] VITALS: BP 135/79
[2021-06-01] MEDS: SIMVASTATIN 40 MG TABLET PO SCH (20:38)
[2021-06-02 08:00] VITALS: BP 111/54
[2021-06-02] MEDS: ARIPiprazole 10 MG TABLET PO SCH (08:11)
[2021-06-02] MEDS: CloNIDine HCL 0.1 MG TABLET PO SCH ×2 (08:12→16:16)
[2021-06-02] MEDS: CITALOPRAM HYDROBROMIDE 20 MG TABLET PO SCH (08:12)
[2021-06-02] MEDS: HYDROCHLOROTHIAZIDE 25 MG TABLET PO SCH (08:12)
[2021-06-02] MEDS: AmLODIPine BESYLATE 10 MG TABLET PO SCH (08:13)
[2021-06-02 09:12] VITALS: BP 128/71
[2021-06-02 16:30] VITALS: BP 127/69
[2021-06-02] MEDS: SIMVASTATIN 40 MG TABLET PO SCH (20:03)
[2021-06-02 23:54] VITALS: BP 131/67
[2021-06-02] MEDS: ZOLPIDEM TARTRATE 10 MG TABLET PO PRN (23:54)
[2021-06-03] MEDS: HYDROCHLOROTHIAZIDE 25 MG TABLET PO SCH (08:43)
[2021-06-03] MEDS: AmLODIPine BESYLATE 10 MG TABLET PO SCH (08:43)
[2021-06-03] MEDS: CloNIDine HCL 0.1 MG TABLET PO SCH ×2 (08:43→16:14)
[2021-06-03] MEDS: CITALOPRAM HYDROBROMIDE 20 MG TABLET PO SCH (08:46)
[2021-06-03] MEDS: ARIPiprazole 10 MG TABLET PO SCH (08:46)
[2021-06-03 09:05] VITALS: BP 135/83
[2021-06-03 16:00] VITALS: BP 120/55
[2021-06-03] MEDS: SIMVASTATIN 40 MG TABLET PO SCH (20:06)
[2021-06-04 07:03] VITALS: BP 120/72
[2021-06-04] MEDS: LORazepam 2 MG TABLET PO PRN (07:03)
[2021-06-04 08:51] VITALS: BP 154/86
[2021-06-04] MEDS: HYDROCHLOROTHIAZIDE 25 MG TABLET PO SCH (08:52)
[2021-06-04] MEDS: CITALOPRAM HYDROBROMIDE 20 MG TABLET PO SCH (08:52)
[2021-06-04] MEDS: ARIPiprazole 10 MG TABLET PO SCH (08:52)
[2021-06-04] MEDS: AmLODIPine BESYLATE 10 MG TABLET PO SCH (08:52)
[2021-06-04] MEDS: CloNIDine HCL 0.1 MG TABLET PO SCH ×2 (08:52→16:18)
[2021-06-04 14:54] LABS: COVID AG,FIA SOURCE NASOPHARYNGEAL
[2021-06-04 16:02] VITALS: BP 121/68
[2021-06-04] MEDS: SIMVASTATIN 40 MG TABLET PO SCH (20:46)
[2021-06-05 02:59] VITALS: BP 112/68
[2021-06-05] MEDS: ZOLPIDEM TARTRATE 10 MG TABLET PO PRN (02:59)
[2021-06-05] MEDS: ARIPiprazole 10 MG TABLET PO SCH (08:20)
[2021-06-05] MEDS: CITALOPRAM HYDROBROMIDE 20 MG TABLET PO SCH (08:21)
[2021-06-05] MEDS: HYDROCHLOROTHIAZIDE 25 MG TABLET PO SCH (08:21)
[2021-06-05] MEDS: AmLODIPine BESYLATE 10 MG TABLET PO SCH (08:21)
[2021-06-05] MEDS: CloNIDine HCL 0.1 MG TABLET PO SCH ×2 (08:21→16:47)
[2021-06-05 09:06] VITALS: BP 132/72
[2021-06-05] MEDS: SIMVASTATIN 40 MG TABLET PO SCH (20:45)
[2021-06-06 08:15] VITALS: BP 118/58
[2021-06-06] MEDS: AmLODIPine BESYLATE 10 MG TABLET PO SCH (09:34)
[2021-06-06] MEDS: HYDROCHLOROTHIAZIDE 25 MG TABLET PO SCH (09:34)
[2021-06-06] MEDS: ARIPiprazole 10 MG TABLET PO SCH (09:34)
[2021-06-06] MEDS: CloNIDine HCL 0.1 MG TABLET PO SCH ×2 (09:35→16:14)
[2021-06-06] MEDS: CITALOPRAM HYDROBROMIDE 20 MG TABLET PO SCH (09:35)
[2021-06-06 16:17] VITALS: BP 107/61
[2021-06-06] MEDS: SIMVASTATIN 40 MG TABLET PO SCH (20:01)
[2021-06-07 08:09] VITALS: BP 129/82
[2021-06-07] MEDS: AmLODIPine BESYLATE 10 MG TABLET PO SCH (09:33)
[2021-06-07] MEDS: CloNIDine HCL 0.1 MG TABLET PO SCH ×2 (09:34→16:40)
[2021-06-07] MEDS: ARIPiprazole 10 MG TABLET PO SCH (09:34)
[2021-06-07] MEDS: CITALOPRAM HYDROBROMIDE 20 MG TABLET PO SCH (09:34)
[2021-06-07] MEDS: HYDROCHLOROTHIAZIDE 25 MG TABLET PO SCH (09:35)
[2021-06-07 16:11] VITALS: BP 106/65
[2021-06-07] MEDS: SIMVASTATIN 40 MG TABLET PO SCH (20:33)
[2021-06-08 03:22] VITALS: BP 110/53
[2021-06-08] MEDS: AmLODIPine BESYLATE 10 MG TABLET PO SCH (08:04)
[2021-06-08] MEDS: ARIPiprazole 10 MG TABLET PO SCH (08:04)
[2021-06-08] MEDS: CloNIDine HCL 0.1 MG TABLET PO SCH ×2 (08:04→16:36)
[2021-06-08] MEDS: CITALOPRAM HYDROBROMIDE 20 MG TABLET PO SCH (08:04)
[2021-06-08] MEDS: HYDROCHLOROTHIAZIDE 25 MG TABLET PO SCH (08:04)
[2021-06-08 09:02] VITALS: BP 131/82
[2021-06-08 16:47] VITALS: BP 105/79
[2021-06-08] MEDS: SIMVASTATIN 40 MG TABLET PO SCH (20:12)
[2021-06-09] MEDS: ARIPiprazole 10 MG TABLET PO SCH (07:56)
[2021-06-09] MEDS: CITALOPRAM HYDROBROMIDE 20 MG TABLET PO SCH (07:56)
[2021-06-09] MEDS: HYDROCHLOROTHIAZIDE 25 MG TABLET PO SCH (07:57)
[2021-06-09] MEDS: CloNIDine HCL 0.1 MG TABLET PO SCH ×2 (07:57→16:00)
[2021-06-09] MEDS: AmLODIPine BESYLATE 10 MG TABLET PO SCH (07:57)
[2021-06-09 08:21] VITALS: BP 149/79
[2021-06-09 16:06] VITALS: BP 134/75
[2021-06-09] MEDS: SIMVASTATIN 40 MG TABLET PO SCH (20:22)
[2021-06-10] MEDS: ARIPiprazole 10 MG TABLET PO SCH (08:41)
[2021-06-10] MEDS: CloNIDine HCL 0.1 MG TABLET PO SCH ×2 (08:42→17:00)
[2021-06-10] MEDS: HYDROCHLOROTHIAZIDE 25 MG TABLET PO SCH (08:42)
[2021-06-10] MEDS: AmLODIPine BESYLATE 10 MG TABLET PO SCH (08:42)
[2021-06-10] MEDS: CITALOPRAM HYDROBROMIDE 20 MG TABLET PO SCH (08:43)
[2021-06-10 09:06] VITALS: BP 129/59
[2021-06-10 16:00] VITALS: BP 112/64
[2021-06-10] MEDS: SIMVASTATIN 40 MG TABLET PO SCH (20:11)
[2021-06-11 01:04] VITALS: BP 117/62
[2021-06-11 09:30] VITALS: BP 161/69
[2021-06-11] MEDS: ARIPiprazole 10 MG TABLET PO SCH (09:46)
[2021-06-11] MEDS: CITALOPRAM HYDROBROMIDE 20 MG TABLET PO SCH (09:46)
[2021-06-11] MEDS: CloNIDine HCL 0.1 MG TABLET PO SCH ×2 (09:46→16:25)
[2021-06-11] MEDS: AmLODIPine BESYLATE 10 MG TABLET PO SCH (09:46)
[2021-06-11] MEDS: HYDROCHLOROTHIAZIDE 25 MG TABLET PO SCH (09:46)
[2021-06-11 16:00] VITALS: BP 146/71
[2021-06-11 17:15] LABS: COVID AG,FIA SOURCE NASAL SWAB
[2021-06-11] MEDS: SIMVASTATIN 40 MG TABLET PO SCH (20:42)
[2021-06-12 04:34] VITALS: BP 126/61
[2021-06-12 08:51] VITALS: BP 130/68
[2021-06-12] MEDS: ARIPiprazole 10 MG TABLET PO SCH (09:43)
[2021-06-12] MEDS: AmLODIPine BESYLATE 10 MG TABLET PO SCH (09:44)
[2021-06-12] MEDS: CITALOPRAM HYDROBROMIDE 20 MG TABLET PO SCH (09:44)
[2021-06-12] MEDS: HYDROCHLOROTHIAZIDE 25 MG TABLET PO SCH (09:44)
[2021-06-12] MEDS: CloNIDine HCL 0.1 MG TABLET PO SCH ×2 (09:44→16:19)
[2021-06-12 16:04] VITALS: BP 123/76
[2021-06-12] MEDS: SIMVASTATIN 40 MG TABLET PO SCH (20:20)
[2021-06-13 08:00] VITALS: BP 149/62
[2021-06-13] MEDS: AmLODIPine BESYLATE 10 MG TABLET PO SCH (09:43)
[2021-06-13] MEDS: CloNIDine HCL 0.1 MG TABLET PO SCH ×2 (09:43→17:12)
[2021-06-13] MEDS: ARIPiprazole 10 MG TABLET PO SCH (09:43)
[2021-06-13] MEDS: HYDROCHLOROTHIAZIDE 25 MG TABLET PO SCH (09:44)
[2021-06-13] MEDS: CITALOPRAM HYDROBROMIDE 20 MG TABLET PO SCH (09:44)
[2021-06-13 16:23] VITALS: BP 117/72
[2021-06-13] MEDS: SIMVASTATIN 40 MG TABLET PO SCH (21:10)
[2021-06-14 08:45] VITALS: BP 128/61
[2021-06-14] MEDS: CloNIDine HCL 0.1 MG TABLET PO SCH ×2 (09:22→16:58)
[2021-06-14] MEDS: HYDROCHLOROTHIAZIDE 25 MG TABLET PO SCH (09:22)
[2021-06-14] MEDS: ARIPiprazole 10 MG TABLET PO SCH (09:22)
[2021-06-14] MEDS: AmLODIPine BESYLATE 10 MG TABLET PO SCH (09:22)
[2021-06-14] MEDS: CITALOPRAM HYDROBROMIDE 20 MG TABLET PO SCH (09:22)
[2021-06-14 16:03] VITALS: BP 103/60
[2021-06-14] MEDS: SIMVASTATIN 40 MG TABLET PO SCH (21:08)
[2021-06-15 02:03] VITALS: BP 128/58
[2021-06-15] MEDS: CloNIDine HCL 0.1 MG TABLET PO SCH ×2 (08:20→17:02)
[2021-06-15] MEDS: HYDROCHLOROTHIAZIDE 25 MG TABLET PO SCH (08:20)
[2021-06-15] MEDS: AmLODIPine BESYLATE 10 MG TABLET PO SCH (08:20)
[2021-06-15] MEDS: CITALOPRAM HYDROBROMIDE 20 MG TABLET PO SCH (08:20)
[2021-06-15] MEDS: ARIPiprazole 10 MG TABLET PO SCH (08:25)
[2021-06-15 08:30] VITALS: BP 147/86
[2021-06-15 17:06] VITALS: BP 115/62
[2021-06-15] MEDS: SIMVASTATIN 40 MG TABLET PO SCH (20:02)
[2021-06-16 05:44] VITALS: BP 157/88
[2021-06-16] MEDS: HYDROCHLOROTHIAZIDE 25 MG TABLET PO SCH (08:14)
[2021-06-16] MEDS: CITALOPRAM HYDROBROMIDE 20 MG TABLET PO SCH (08:15)
[2021-06-16] MEDS: ARIPiprazole 10 MG TABLET PO SCH (08:15)
[2021-06-16] MEDS: CloNIDine HCL 0.1 MG TABLET PO SCH ×2 (08:15→16:04)
[2021-06-16] MEDS: AmLODIPine BESYLATE 10 MG TABLET PO SCH (08:15)
[2021-06-16 08:45] VITALS: BP 143/60
[2021-06-16 16:42] VITALS: BP 110/70
[2021-06-16] MEDS: SIMVASTATIN 40 MG TABLET PO SCH (20:36)
[2021-06-16] MEDS: NYSTATIN/TRIAMCINOLONE 15 GM CREAM TP SCH (21:05)
[2021-06-17 03:50] VITALS: BP 153/78
[2021-06-17 08:16] VITALS: BP 139/90
[2021-06-17] MEDS: CloNIDine HCL 0.1 MG TABLET PO SCH ×2 (08:27→16:39)
[2021-06-17] MEDS: AmLODIPine BESYLATE 10 MG TABLET PO SCH (08:27)
[2021-06-17] MEDS: HYDROCHLOROTHIAZIDE 25 MG TABLET PO SCH (08:27)
[2021-06-17] MEDS: CITALOPRAM HYDROBROMIDE 20 MG TABLET PO SCH (08:27)
[2021-06-17] MEDS: ARIPiprazole 10 MG TABLET PO SCH (08:27)
[2021-06-17] MEDS: NYSTATIN/TRIAMCINOLONE 15 GM CREAM TP SCH ×2 (08:28→17:56)
[2021-06-17 16:00] VITALS: BP 115/65
[2021-06-17] MEDS: SIMVASTATIN 40 MG TABLET PO SCH (20:04)
[2021-06-18 02:43] VITALS: BP 139/85
[2021-06-18 08:00] VITALS: BP 134/82
[2021-06-18] MEDS: CITALOPRAM HYDROBROMIDE 20 MG TABLET PO SCH (08:44)
[2021-06-18] MEDS: ARIPiprazole 10 MG TABLET PO SCH (08:45)
[2021-06-18] MEDS: HYDROCHLOROTHIAZIDE 25 MG TABLET PO SCH (08:45)
[2021-06-18] MEDS: CloNIDine HCL 0.1 MG TABLET PO SCH ×2 (08:46→16:38)
[2021-06-18] MEDS: AmLODIPine BESYLATE 10 MG TABLET PO SCH (08:46)
[2021-06-18] MEDS: NYSTATIN/TRIAMCINOLONE 15 GM CREAM TP SCH ×2 (10:36→16:39)
[2021-06-18 16:14] VITALS: BP 124/71
[2021-06-18] MEDS: SIMVASTATIN 40 MG TABLET PO SCH (20:55)
[2021-06-18] MEDS: LORazepam 2 MG TABLET PO PRN (21:27)
[2021-06-19] MEDS: LORazepam 2 MG TABLET PO PRN (01:57)
[2021-06-19 02:33] VITALS: BP 152/84
[2021-06-19] MEDS: ARIPiprazole 10 MG TABLET PO SCH (08:07)
[2021-06-19] MEDS: AmLODIPine BESYLATE 10 MG TABLET PO SCH (08:07)
[2021-06-19] MEDS: CloNIDine HCL 0.1 MG TABLET PO SCH ×2 (08:08→16:23)
[2021-06-19] MEDS: CITALOPRAM HYDROBROMIDE 20 MG TABLET PO SCH (08:08)
[2021-06-19] MEDS: HYDROCHLOROTHIAZIDE 25 MG TABLET PO SCH (08:08)
[2021-06-19 08:15] VITALS: BP 133/75
[2021-06-19] MEDS: NYSTATIN/TRIAMCINOLONE 15 GM CREAM TP SCH ×2 (10:44→17:00)
[2021-06-19 16:28] VITALS: BP 140/78
[2021-06-19] MEDS: SIMVASTATIN 40 MG TABLET PO SCH (21:02)
[2021-06-20 08:14] VITALS: BP 150/78
[2021-06-20] MEDS: CITALOPRAM HYDROBROMIDE 20 MG TABLET PO SCH (08:38)
[2021-06-20] MEDS: AmLODIPine BESYLATE 10 MG TABLET PO SCH (08:38)
[2021-06-20] MEDS: ARIPiprazole 10 MG TABLET PO SCH (08:38)
[2021-06-20] MEDS: HYDROCHLOROTHIAZIDE 25 MG TABLET PO SCH (08:38)
[2021-06-20] MEDS: CloNIDine HCL 0.1 MG TABLET PO SCH ×2 (08:38→16:09)
[2021-06-20] MEDS: NYSTATIN/TRIAMCINOLONE 15 GM CREAM TP SCH ×2 (08:39→16:25)
[2021-06-20] MEDS: HYDROCORTISONE 1% 30 GM OINTMENT TP SCH ×2 (11:54→16:09)
[2021-06-20 15:37] LABS: COVID AG,FIA SOURCE NASAL SWAB
[2021-06-20 16:15] VITALS: BP 117/68
[2021-06-20] MEDS: SIMVASTATIN 40 MG TABLET PO SCH (20:10)
[2021-06-21 00:35] VITALS: BP 136/74
[2021-06-21] MEDS: ZOLPIDEM TARTRATE 10 MG TABLET PO PRN (01:16)
[2021-06-21 08:30] VITALS: BP 154/98
[2021-06-21] MEDS: ARIPiprazole 10 MG TABLET PO SCH (10:01)
[2021-06-21] MEDS: CITALOPRAM HYDROBROMIDE 20 MG TABLET PO SCH (10:02)
[2021-06-21] MEDS: HYDROCHLOROTHIAZIDE 25 MG TABLET PO SCH (10:02)
[2021-06-21] MEDS: CloNIDine HCL 0.1 MG TABLET PO SCH ×2 (10:02→16:16)
[2021-06-21] MEDS: AmLODIPine BESYLATE 10 MG TABLET PO SCH (10:02)
[2021-06-21] MEDS: NYSTATIN/TRIAMCINOLONE 15 GM CREAM TP SCH ×2 (10:03→16:27)
[2021-06-21] MEDS: HYDROCORTISONE 1% 30 GM OINTMENT TP SCH ×2 (10:03→16:26)
[2021-06-21 16:30] VITALS: BP 119/68
[2021-06-21] MEDS: SIMVASTATIN 40 MG TABLET PO SCH (20:20)
[2021-06-22] MEDS: CloNIDine HCL 0.1 MG TABLET PO SCH ×2 (08:08→16:55)
[2021-06-22] MEDS: CITALOPRAM HYDROBROMIDE 20 MG TABLET PO SCH (08:08)
[2021-06-22] MEDS: ARIPiprazole 10 MG TABLET PO SCH (08:08)
[2021-06-22] MEDS: HYDROCHLOROTHIAZIDE 25 MG TABLET PO SCH (08:09)
[2021-06-22] MEDS: AmLODIPine BESYLATE 10 MG TABLET PO SCH (08:09)
[2021-06-22 08:30] VITALS: BP 148/63
[2021-06-22] MEDS: HYDROCORTISONE 1% 30 GM OINTMENT TP SCH ×2 (11:35→16:56)
[2021-06-22] MEDS: NYSTATIN/TRIAMCINOLONE 15 GM CREAM TP SCH ×2 (11:36→16:56)
[2021-06-22 18:38] VITALS: BP 106/60
[2021-06-22] MEDS: SIMVASTATIN 40 MG TABLET PO SCH (20:06)
[2021-06-23 04:23] VITALS: BP 141/79
[2021-06-23] MEDS: LORazepam 2 MG TABLET PO PRN (04:27)
[2021-06-23] MEDS: ARIPiprazole 10 MG TABLET PO SCH (08:22)
[2021-06-23] MEDS: HYDROCHLOROTHIAZIDE 25 MG TABLET PO SCH (08:22)
[2021-06-23] MEDS: AmLODIPine BESYLATE 10 MG TABLET PO SCH (08:23)
[2021-06-23] MEDS: CITALOPRAM HYDROBROMIDE 20 MG TABLET PO SCH (08:23)
[2021-06-23] MEDS: CloNIDine HCL 0.1 MG TABLET PO SCH ×2 (08:23→17:08)
[2021-06-23] MEDS: HYDROCORTISONE 1% 30 GM OINTMENT TP SCH ×2 (08:24→17:09)
[2021-06-23] MEDS: NYSTATIN/TRIAMCINOLONE 15 GM CREAM TP SCH ×2 (09:00→17:08)
[2021-06-23 09:29] VITALS: BP 123/73
[2021-06-23 19:07] VITALS: BP 119/70
[2021-06-23] MEDS: SIMVASTATIN 40 MG TABLET PO SCH (21:07)
[2021-06-24] MEDS: AmLODIPine BESYLATE 10 MG TABLET PO SCH (08:22)
[2021-06-24] MEDS: HYDROCORTISONE 1% 30 GM OINTMENT TP SCH ×2 (08:22→19:45)
[2021-06-24] MEDS: CloNIDine HCL 0.1 MG TABLET PO SCH ×2 (08:22→17:23)
[2021-06-24] MEDS: NYSTATIN/TRIAMCINOLONE 15 GM CREAM TP SCH ×2 (08:23→17:23)
[2021-06-24 08:43] VITALS: BP 148/86
[2021-06-24] MEDS: CITALOPRAM HYDROBROMIDE 20 MG TABLET PO SCH (08:50)
[2021-06-24] MEDS: HYDROCHLOROTHIAZIDE 25 MG TABLET PO SCH (08:50)
[2021-06-24] MEDS: ARIPiprazole 10 MG TABLET PO SCH (08:51)
[2021-06-24 16:46] VITALS: BP 125/68
[2021-06-24] MEDS: SIMVASTATIN 40 MG TABLET PO SCH (21:01)
[2021-06-25] MEDS: CloNIDine HCL 0.1 MG TABLET PO SCH ×2 (08:34→17:35)
[2021-06-25] MEDS: CITALOPRAM HYDROBROMIDE 20 MG TABLET PO SCH (08:34)
[2021-06-25] MEDS: AmLODIPine BESYLATE 10 MG TABLET PO SCH (08:35)
[2021-06-25] MEDS: ARIPiprazole 10 MG TABLET PO SCH (08:35)
[2021-06-25] MEDS: HYDROCHLOROTHIAZIDE 25 MG TABLET PO SCH (08:35)
[2021-06-25] MEDS: HYDROCORTISONE 1% 30 GM OINTMENT TP SCH ×2 (08:36→17:35)
[2021-06-25] MEDS: NYSTATIN/TRIAMCINOLONE 15 GM CREAM TP SCH ×2 (08:36→17:35)
[2021-06-25 09:05] VITALS: BP 150/78
[2021-06-25] MEDS ORDERED: TUBERCULIN, PURIFIED PROTEIN DERIVATIVE 5 TU/0.1 ML SYRINGE ID ONE (14:15)
[2021-06-25 16:15] VITALS: BP 127/77
[2021-06-25] MEDS: SIMVASTATIN 40 MG TABLET PO SCH (21:01)
[2021-06-26 08:29] VITALS: BP 142/83
[2021-06-26 08:30] VITALS: BP 142/83
[2021-06-26] MEDS: AmLODIPine BESYLATE 10 MG TABLET PO SCH (08:51)
[2021-06-26] MEDS: CloNIDine HCL 0.1 MG TABLET PO SCH ×2 (08:51→17:00)
[2021-06-26] MEDS: CITALOPRAM HYDROBROMIDE 20 MG TABLET PO SCH (08:51)
[2021-06-26] MEDS: HYDROCHLOROTHIAZIDE 25 MG TABLET PO SCH (08:51)
[2021-06-26] MEDS: ARIPiprazole 10 MG TABLET PO SCH (08:51)
[2021-06-26] MEDS: NYSTATIN/TRIAMCINOLONE 15 GM CREAM TP SCH ×2 (08:52→17:00)
[2021-06-26] MEDS: HYDROCORTISONE 1% 30 GM OINTMENT TP SCH ×2 (08:52→17:00)
[2021-06-26 16:20] VITALS: BP 131/62
[2021-06-26] MEDS: SIMVASTATIN 40 MG TABLET PO SCH (20:22)
[2021-06-27 08:05] VITALS: BP 117/59
[2021-06-27] MEDS: ARIPiprazole 10 MG TABLET PO SCH (08:36)
[2021-06-27] MEDS: NYSTATIN/TRIAMCINOLONE 15 GM CREAM TP SCH ×2 (08:37→16:08)
[2021-06-27] MEDS: CITALOPRAM HYDROBROMIDE 20 MG TABLET PO SCH (08:37)
[2021-06-27] MEDS: AmLODIPine BESYLATE 10 MG TABLET PO SCH (08:37)
[2021-06-27] MEDS: CloNIDine HCL 0.1 MG TABLET PO SCH ×2 (08:37→16:07)
[2021-06-27] MEDS: HYDROCORTISONE 1% 30 GM OINTMENT TP SCH ×2 (08:37→16:07)
[2021-06-27] MEDS: HYDROCHLOROTHIAZIDE 25 MG TABLET PO SCH (08:37)
[2021-06-27] MEDS: PredniSONE 20 MG TABLET PO SCH (10:55)
[2021-06-27 16:14] VITALS: BP 121/69
[2021-06-27 16:18] LABS: COVID AG,FIA SOURCE NASAL SWAB
[2021-06-27] MEDS: SIMVASTATIN 40 MG TABLET PO SCH (20:04)
[2021-06-28 03:32] VITALS: BP 120/68
[2021-06-28] MEDS: NYSTATIN/TRIAMCINOLONE 15 GM CREAM TP SCH ×2 (08:38→19:37)
[2021-06-28] MEDS: HYDROCORTISONE 1% 30 GM OINTMENT TP SCH ×2 (08:38→19:37)
[2021-06-28] MEDS: AmLODIPine BESYLATE 10 MG TABLET PO SCH (08:39)
[2021-06-28] MEDS: CITALOPRAM HYDROBROMIDE 20 MG TABLET PO SCH (08:39)
[2021-06-28] MEDS: PredniSONE 20 MG TABLET PO SCH (08:39)
[2021-06-28] MEDS: CloNIDine HCL 0.1 MG TABLET PO SCH ×2 (08:39→16:39)
[2021-06-28] MEDS: HYDROCHLOROTHIAZIDE 25 MG TABLET PO SCH (08:39)
[2021-06-28 09:08] VITALS: BP 129/72
[2021-06-28] MEDS: ARIPiprazole 10 MG TABLET PO SCH (09:14)
[2021-06-28 16:08] VITALS: BP 139/79
[2021-06-28] MEDS: SIMVASTATIN 40 MG TABLET PO SCH (20:10)
[2021-06-29 08:37] VITALS: BP 145/74
[2021-06-29] MEDS: CloNIDine HCL 0.1 MG TABLET PO SCH ×2 (08:40→16:00)
[2021-06-29] MEDS: HYDROCHLOROTHIAZIDE 25 MG TABLET PO SCH (08:40)
[2021-06-29] MEDS: CITALOPRAM HYDROBROMIDE 20 MG TABLET PO SCH (08:40)
[2021-06-29] MEDS: AmLODIPine BESYLATE 10 MG TABLET PO SCH (08:41)
[2021-06-29] MEDS: PredniSONE 20 MG TABLET PO SCH (08:41)
[2021-06-29] MEDS: ARIPiprazole 10 MG TABLET PO SCH (08:42)
[2021-06-29] MEDS: HYDROCORTISONE 1% 30 GM OINTMENT TP SCH ×2 (08:42→18:32)
[2021-06-29] MEDS: NYSTATIN/TRIAMCINOLONE 15 GM CREAM TP SCH ×2 (08:43→18:32)
[2021-06-29 16:00] VITALS: BP 156/79
[2021-06-29] MEDS: SIMVASTATIN 40 MG TABLET PO SCH (20:15)
[2021-06-30] MEDS: ARIPiprazole 10 MG TABLET PO SCH (08:07)
[2021-06-30] MEDS: CloNIDine HCL 0.1 MG TABLET PO SCH ×2 (08:07→16:01)
[2021-06-30] MEDS: CITALOPRAM HYDROBROMIDE 20 MG TABLET PO SCH (08:07)
[2021-06-30] MEDS: HYDROCORTISONE 1% 30 GM OINTMENT TP SCH ×2 (08:08→16:01)
[2021-06-30] MEDS: HYDROCHLOROTHIAZIDE 25 MG TABLET PO SCH (08:08)
[2021-06-30] MEDS: NYSTATIN/TRIAMCINOLONE 15 GM CREAM TP SCH ×2 (08:08→16:01)
[2021-06-30] MEDS: AmLODIPine BESYLATE 10 MG TABLET PO SCH (08:08)
[2021-06-30] MEDS: PredniSONE 20 MG TABLET PO SCH (08:08)
[2021-06-30 08:56] LABS: COVID AG,FIA SOURCE NASAL SWAB
[2021-06-30 10:05] VITALS: BP 140/73
[2021-06-30 16:31] VITALS: BP 131/86
[2021-06-30] MEDS: SIMVASTATIN 40 MG TABLET PO SCH (20:11)
[2021-07-01] MEDS: LORazepam 2 MG TABLET PO PRN (00:04)
[2021-07-01 00:33] VITALS: BP 142/73
[2021-07-01] MEDS: HYDROCORTISONE 1% 30 GM OINTMENT TP SCH ×2 (08:28→16:56)
[2021-07-01] MEDS: NYSTATIN/TRIAMCINOLONE 15 GM CREAM TP SCH ×2 (08:28→17:04)
[2021-07-01] MEDS: AmLODIPine BESYLATE 10 MG TABLET PO SCH (08:28)
[2021-07-01] MEDS: CloNIDine HCL 0.1 MG TABLET PO SCH ×2 (08:29→16:56)
[2021-07-01] MEDS: ARIPiprazole 10 MG TABLET PO SCH (08:29)
[2021-07-01] MEDS: PredniSONE 20 MG TABLET PO SCH (08:29)
[2021-07-01] MEDS: CITALOPRAM HYDROBROMIDE 20 MG TABLET PO SCH (08:29)
[2021-07-01] MEDS: HYDROCHLOROTHIAZIDE 25 MG TABLET PO SCH (08:29)
[2021-07-01 08:39] VITALS: BP 154/79
[2021-07-01 17:38] VITALS: BP 129/75
[2021-07-01] MEDS: SIMVASTATIN 40 MG TABLET PO SCH (20:07)
[2021-07-02 05:13] VITALS: BP 124/57
[2021-07-02 08:30] VITALS: BP 151/71
[2021-07-02] MEDS: CITALOPRAM HYDROBROMIDE 20 MG TABLET PO SCH (08:30)
[2021-07-02] MEDS: AmLODIPine BESYLATE 10 MG TABLET PO SCH (08:30)
[2021-07-02] MEDS: ARIPiprazole 10 MG TABLET PO SCH (08:30)
[2021-07-02] MEDS: HYDROCHLOROTHIAZIDE 25 MG TABLET PO SCH (08:31)
[2021-07-02] MEDS: CloNIDine HCL 0.1 MG TABLET PO SCH ×2 (08:31→16:14)
[2021-07-02] MEDS: PredniSONE 20 MG TABLET PO SCH (08:31)
[2021-07-02] MEDS: HYDROCORTISONE 1% 30 GM OINTMENT TP SCH ×2 (11:20→16:15)
[2021-07-02] MEDS: NYSTATIN/TRIAMCINOLONE 15 GM CREAM TP SCH ×2 (11:20→16:14)
[2021-07-02 16:21] VITALS: BP 107/69
[2021-07-02] MEDS: SIMVASTATIN 40 MG TABLET PO SCH (20:33)
[2021-07-03 04:03] VITALS: BP 140/85
[2021-07-03] MEDS: ARIPiprazole 10 MG TABLET PO SCH (08:29)
[2021-07-03] MEDS: PredniSONE 20 MG TABLET PO SCH (08:29)
[2021-07-03] MEDS: HYDROCHLOROTHIAZIDE 25 MG TABLET PO SCH (08:29)
[2021-07-03] MEDS: CITALOPRAM HYDROBROMIDE 20 MG TABLET PO SCH (08:29)
[2021-07-03] MEDS: CloNIDine HCL 0.1 MG TABLET PO SCH (08:30)
[2021-07-03] MEDS: AmLODIPine BESYLATE 10 MG TABLET PO SCH (08:30)
[2021-07-03 08:57] VITALS: BP 142/71
[2021-07-03] MEDS ORDERED: ARIP10TA38 PO (09:15)
[2021-07-03] MEDS ORDERED: CITA-144 PO (09:15)
[2021-07-03] MEDS ORDERED: AMLO-258 PO (09:16)
[2021-07-03] MEDS ORDERED: PRED20 PO (09:16)
[2021-07-03] MEDS ORDERED: HYDR30OI13 TP (09:20)
[2021-07-03] MEDS ORDERED: NYST15CR2 TP (09:20)
[2021-07-03] MEDS: NYSTATIN/TRIAMCINOLONE 15 GM CREAM TP SCH (09:53)
[2021-07-03] MEDS: HYDROCORTISONE 1% 30 GM OINTMENT TP SCH (09:53)
== END 2021-07-03 15:45 | disposition home or self-care (01) | DRG 750 ==
LOC: EMS 19:15 → 3EI 22:52 → 3EX 07-01 11:00
PROVIDERS: ADMIT Psychiatry & Neurology Child & Adolescent Psychiatry; ATTEND Psychiatry & Neurology Child & Adolescent Psychiatry
PROC: 3E0234Z Introduction of Serum, Toxoid and Vaccine into Muscle, Percutaneous Approach (ICD-10-PCS; principal; 2021-05-16)
DX: F25.1 Schizoaffective disorder, depressive type (principal); F33.2 Major depressive disorder, recurrent severe without psychotic features; R45.851 Suicidal ideations; E11.9 Type 2 diabetes mellitus without complications; Z59.0 Homelessness; E78.00 Pure hypercholesterolemia, unspecified; E66.9 Obesity, unspecified; B36.9 Superficial mycosis, unspecified; Z20.822 Contact with and (suspected) exposure to COVID-19; Z91.5 Personal history of self-harm; I10 Essential (primary) hypertension; M19.90 Unspecified osteoarthritis, unspecified site; E78.5 Hyperlipidemia, unspecified; Z86.73 Personal history of transient ischemic attack (TIA), and cerebral infarction without residual deficits; F41.9 Anxiety disorder, unspecified; R63.0 Anorexia; Z68.37 Body mass index [BMI] 37.0-37.9, adult; Z23 Encounter for immunization
CPT/HCPCS: 80053; 80061; 80307; 81003; 83036; 85025; 90732; 97116; 97530; 97535; 99285; G0378; G0480

== ENCOUNTER 2021-08-10 08:56 | Inpatient (IN) | payer MEDICAID, OTHER ==
[~2021-08-10] VITALS: Ht 170.2 cm; Wt 98.3 kg
[~2021-08-10 08:56] MED LIST changes: +AMLO-258 PO; -BENA10TA77 PO; +CITA-144 PO; -CITA10TA99 PO; -CLON-353 PO; +CLON0.1T2 PO; +HYDR30OI13 TP; +NYST15CR2 TP; +PRED20 PO
[2021-08-10] MEDS ORDERED: CEPH500C3 PO (09:17)
[2021-08-10] MEDS ORDERED: HEPA500018 SQ (09:17)
[2021-08-10] MEDS ORDERED: THIA100T80 PO (09:17)
[2021-08-10 09:22] LABS: BASOPHILS % (AUTO) 0.5 % (0.0-2.0); HEMATOCRIT 38.7 % (41-53); HEMOGLOBIN 12.7 g/dL (13.5-17.5); LYMPHOCYTES # (AUTO) 1.6 K/uL (1.0-4.8); LYMPHOCYTES % (AUTO) 13.7 % (22.0-44.0); MEAN CORPUSCULAR HEMOGLOBIN 28.2 pg (26.0-34.0); MEAN CORPUSCULAR HGB CONC 32.7 G/dL (31.0-37.0); MEAN CORPUSCULAR VOLUME 86 fL (80-100); MONOCYTES # (AUTO) 0.5 K/uL (0.1-1.0); MONOCYTES % (AUTO) 4.3 % (2.0-9.0); NEUTROPHILS # (AUTO) 8.8 K/uL (1.8-7.7); NEUTROPHILS % (AUTO) 77.5 % (40.0-70.0); PLATELET COUNT (AUTO) 334 K/uL (150-450); RED BLOOD CELL COUNT(AUTO) 4.49 MIL/uL (4.50-5.90)
[2021-08-10 09:34] LABS: ANION GAP 6 mmol/L (8-16); CALCIUM, TOTAL 8.3 mg/dL (8.8-10.5); CARBON DIOXIDE 28 mmol/L (22-29); CHLORIDE 109 mmol/L (98-107); CREATININE 1.16 mg/dL (0.60-1.30); GLOMERULAR FILTR. RATE CALC > 60 mL/min (>60); GLUCOSE,RANDOM 103 mg/dL (70-110); POTASSIUM 4.2 mmol/L (3.5-5.1); SODIUM SERUM 143 mmol/L (136-145); UREA NITROGEN, BLOOD 28 mg/dL (7-18)
[2021-08-10 09:40] LABS: ALANINE AMINOTRANSFERASE 58 U/L (12-78); ALBUMIN 2.3 g/dL (3.4-5.0); ALKALINE PHOSPHATASE 60 U/L (46-116); ASPARTATE AMINOTRANSFERASE 32 U/L (15-37); BILIRUBIN,TOTAL 0.3 mg/dL (0.1-1.0); TOTAL PROTEIN, SERUM 7.1 g/dL (6.4-8.2)
[2021-08-10] MEDS: ATORVASTATIN CALCIUM 40 MG TABLET PO SCH (10:15)
[2021-08-10] MEDS ORDERED: DEXTROSE 5%-0.45% SODIUM CHL 1,000 ML IV ONE (10:15)
[2021-08-10] MEDS: ASPIRIN 325 MG TABLET PO SCH (10:15)
[2021-08-10] MEDS ORDERED: ONDANSETRON HCL 4 MG/2 ML VIAL IVP PRN (10:30)
[2021-08-10 10:34] LABS: COVID AG,FIA SOURCE NASOPHARYNGEAL
[2021-08-10 12:22] VITALS: BP 144/72
[2021-08-10 15:58] VITALS: BP 143/80
[2021-08-10 20:50] VITALS: BP 142/74
[2021-08-11] VITALS (7 sets, daily range): BP systolic 134–157; BP diastolic 70–94
[2021-08-11] MEDS: ATORVASTATIN CALCIUM 40 MG TABLET PO SCH (09:03)
[2021-08-11] MEDS: ASPIRIN 325 MG TABLET PO SCH (09:03)
[2021-08-11 09:23] LABS: ABG A-A DIFF O2 19.6 mmHg (10-20.0); ABG BASE EXCESS 1.7 mmol/L (-2.0-3.0); ABG CARBOXYHEMOGLOBIN 0.9 % (0.0-1.5); ABG METHEMOGLOBIN 0.3 % (0.0-1.5); ABG OXYGEN CONTENT 17.9 mL/dL (15.0-23.0); ABG OXYGEN SATURATION 96.5 % (95.0-98.0); ABG OXYHEMOGLOBIN 95.3 % (94.0-100.0); ABG PCO2 39 mmHg (35-45); ABG PH 7.439 (7.35-7.450); ABG TOTAL HEMOGLOBIN 13.3 G/dL (12.0-18.0); PO2, ARTERIAL BG 83.5 mmHg (79.0-87.0); SOURCE, BLOOD GAS ARTERIAL; TEMPERATURE, FAHRENHEIT, BG 98.2 FAHREN (96.0-98.6)
[2021-08-11 09:24] LABS: SITE, BLOOD GAS LFT RADIAL
[2021-08-11 09:25] LABS: O2 DEVICE,BLOOD GAS ROOM AIR (ROOM AIR)
[2021-08-11] MEDS ORDERED: ONDANSETRON HCL 4 MG/2 ML VIAL IVP PRN (13:30)
[2021-08-11] MEDS ORDERED: ACETAMINOPHEN 325 MG TABLET PO PRN (13:30)
[2021-08-11] MEDS ORDERED: MAGNESIUM HYDROXIDE SUSPENSION 30 ML UDCUP PO PRN (13:30)
[2021-08-11] MEDS: HEPARIN SODIUM,PORCINE 5,000 UNITS/ML VIAL SQ SCH (16:12)
[2021-08-12 00:08] VITALS: BP 136/66
[2021-08-12] MEDS: HEPARIN SODIUM,PORCINE 5,000 UNITS/ML VIAL SQ SCH ×3 (00:28→17:05)
[2021-08-12] MEDS: DOCUSATE SODIUM 100 MG CAPSULE PO SCH ×3 (00:28→20:39)
[2021-08-12 04:10] VITALS: BP 148/96
[2021-08-12 08:11] VITALS: BP 148/82
[2021-08-12] MEDS: CLOPIDOGREL BISULFATE 75 MG TABLET PO SCH (08:57)
[2021-08-12] MEDS: ASPIRIN 325 MG TABLET PO SCH (08:57)
[2021-08-12] MEDS: ATORVASTATIN CALCIUM 40 MG TABLET PO SCH (08:58)
[2021-08-12] MEDS: FAMOTIDINE 20 MG TABLET PO SCH (08:58)
[2021-08-12 11:15] VITALS: BP 153/78
[2021-08-12 15:03] VITALS: BP 152/87
[2021-08-12 19:40] VITALS: BP 134/80
[2021-08-13 00:26] VITALS: BP 145/78
[2021-08-13] MEDS: HEPARIN SODIUM,PORCINE 5,000 UNITS/ML VIAL SQ SCH ×2 (00:33→09:26)
[2021-08-13 04:30] VITALS: BP 145/72
[2021-08-13 07:35] VITALS: BP 152/85
[2021-08-13] MEDS: DOCUSATE SODIUM 100 MG CAPSULE PO SCH (09:26)
[2021-08-13] MEDS: ATORVASTATIN CALCIUM 40 MG TABLET PO SCH (09:26)
[2021-08-13] MEDS: FAMOTIDINE 20 MG TABLET PO SCH (09:26)
[2021-08-13] MEDS: ASPIRIN 325 MG TABLET PO SCH (09:26)
[2021-08-13] MEDS: CLOPIDOGREL BISULFATE 75 MG TABLET PO SCH (09:26)
[2021-08-13] MEDS ORDERED: AmLODIPine BESYLATE 5 MG TABLET PO SCH (09:45)
[2021-08-13 12:25] VITALS: BP 134/81
[2021-08-13] MEDS ORDERED: AMLO5TAB66 PO (15:41)
[2021-08-13] MEDS ORDERED: ATOR40TA71 PO (15:43)
[2021-08-13] MEDS ORDERED: ASPI81TA87 PO (15:43)
[2021-08-13] MEDS ORDERED: DOCU240C25 PO (15:44)
[2021-08-13] MEDS ORDERED: CLOP75TA14 PO (15:44)
[2021-08-13] MEDS ORDERED: ACET-2247 PO (15:45)
[2021-08-13] MEDS ORDERED: FAMO10TA39 PO (15:45)
[2021-08-13] MEDS ORDERED: MAAL30 PO (15:47)
[2021-08-13] MEDS ORDERED: MOM30 PO (15:47)
== END 2021-08-13 16:20 | DRG 45 ==
LOC: EMS 08:56 → 5S 11:35
PROVIDERS: ADMIT Internal Medicine; ATTEND Internal Medicine
DX: I63.9 Cerebral infarction, unspecified (principal); G81.94 Hemiplegia, unspecified affecting left nondominant side; G93.89 Other specified disorders of brain; F01.50 Vascular dementia, unspecified severity, without behavioral disturbance, psychotic disturbance, mood disturbance, and anxiety; R47.01 Aphasia; I67.2 Cerebral atherosclerosis; F32.9 Major depressive disorder, single episode, unspecified; E78.5 Hyperlipidemia, unspecified; E66.9 Obesity, unspecified; G47.33 Obstructive sleep apnea (adult) (pediatric); E11.9 Type 2 diabetes mellitus without complications; I65.21 Occlusion and stenosis of right carotid artery; R47.1 Dysarthria and anarthria; E78.00 Pure hypercholesterolemia, unspecified; I10 Essential (primary) hypertension; F09 Unspecified mental disorder due to known physiological condition; Z20.822 Contact with and (suspected) exposure to COVID-19; N13.9 Obstructive and reflux uropathy, unspecified; Z86.73 Personal history of transient ischemic attack (TIA), and cerebral infarction without residual deficits; Z95.2 Presence of prosthetic heart valve; Z68.33 Body mass index [BMI] 33.0-33.9, adult
CPT/HCPCS: 36600; 70496; 70551; 71045; 80053; 80061; 82805; 84484; 85025; 85610; 87081; 92610; 93005; 93306; 97112; 97162; 97167; 97530; 97535; 99291; G0378; J1644; 36415-L1; 36415-TC; 70450; 70450-TC